=== PATIENT | female | born 1990 | race American Indian/Alaskan Native ===

== ENCOUNTER 2017-10-22 13:13 | Emergency (ER) | payer OTHER ==
[2017-10-22 14:47] VITALS: BP 107/63
[2017-10-22] MEDS ORDERED: BOOSTRIX IM ONE (20:43)
--- NOTE | 2017-10-22 21:01 | Emergency Department Report ---
ED Lower Extremity HPI - General Chief Complaint: Extremity Injury, Lower Stated Complaint: FALL Source: patient Mode of arrival: Ambulatory Limitations: No Limitations - History of Present Illness Initial Comments: 26 y/o nontoxic in appearance F presents s/p an injury to her R lower extremity at around 11 Am, when she fell at work on a rotted brandon. She states that one of her legs fell all the way down and her other leg was left on the main level. She complains of R lower extremity pain. She denies any bladder or bowel incontinence, no saddle anesthsia. No numbess or tingling. Pt has not tried anything for the pain at this time. She states that she does not know when her last tetanus shot was. She denies any fever, chills, chest pain, SOB, nausea, or vomiting. No trauma to the head or LOC. NKDA. LMP: 09/28/17. MD Complaint: hip injury, thigh injury, knee injury, ankle injury -: Sudden, days(s) (1 day, 11 AM this morning) Injury: Hip: Right, Pelvis: Right, Thigh: Right, Knee: Right, Ankle: Right Severity scale (0 -10): 10 Worsens With: weight bearing, movement Context: fall Associated Symptoms: swelling, able to partially bear weight, ambulatory. denies: numbness, tingling - Related Data Previous Rx's Medication Instructions Recorded Last Taken Type Cyclobenzaprine [Flexeril] 10 mg PO QHS PRN #15 tablet 10/22/17 Unknown Rx Diclofenac Sodium 50 mg PO BID PRN #20 tablet. 10/22/17 Unknown Rx Allergies Allergy/AdvReac Type Severity Reaction Status Date / Time No Known Allergies Allergy Unverified 10/22/17 14:46 ED Review of Systems ROS: Stated complaint: FALL Other details as noted in HPI Constitutional: denies: chills, fever Eyes: denies: eye pain, eye discharge, vision change ENT: denies: ear pain, throat pain Respiratory: denies: cough, shortness of breath, wheezing Cardiovascular: denies: chest pain, palpitations Musculoskeletal: joint swelling, arthralgia, myalgia (of the Right lower extremity) Skin: other (mild redness and swelling noted at the medial R knee and R ankle) Neurological: denies: headache, weakness, paresthesias Psychiatric: denies: anxiety, depression Hematological/Lymphatic: denies: easy bleeding, easy bruising ED Past Medical Hx - Past Medical History Previous Medical History?: No - Surgical History Past Surgical History?: No - Social History Smoking Status: Current Every Day Smoker Substance Use Type: Alcohol - Medications Home Medications: Home Medications Medication Instructions Recorded Confirmed Last Taken Type Cyclobenzaprine [Flexeril] 10 mg PO QHS PRN #15 tablet 10/22/17 Unknown Rx Diclofenac Sodium 50 mg PO BID PRN #20 tablet. 10/22/17 Unknown Rx ED Physical Exam - General Limitations: No Limitations General appearance: alert, in no apparent distress - Head Head exam: Present: atraumatic, normocephalic - Eye Eye exam: Present: normal appearance - ENT ENT exam: Present: mucous membranes moist - Neck Neck exam: Present: normal inspection - Respiratory Respiratory exam: Present: normal lung sounds bilaterally. Absent: respiratory distress - Cardiovascular Cardiovascular Exam: Present: regular rate, normal rhythm. Absent: systolic murmur, diastolic murmur, rubs, gallop - Extremities Exam Extremities exam: Present: other (there is TTP at the medial aspect of the R knee, and at the medial aspect of the R ankle, increased pain with inversion and plantar flexion of the R ankle, pulses and sensation were WNL- no gross defomirty of the R LE (L LE unremarkable)) - Expanded Lower Extremity Exam Right Hip exam: Present: full ROM, tenderness (mild ttp noted at the pelvic girdle region, no obvious deformity) Upper Leg exam: Present: normal inspection, tenderness (ttp just above the R knee joint ) Knee exam: Present: tenderness (noted on the medial aspect of the Right knee), swelling, full knee extension. Absent: deformity, effusion (pain in flexion of the R knee) Ankle exam: Present: tenderness (limited ROM of the right ankle, increased pain is inversion and plantarflexion of the right ankle, strength 4/5 in severity) Foot/Toe exam: Present: tenderness (noted at the medial aspect of the right foot , no ttp at the lateral aspect). Absent: ecchymosis, deformity, crepidus Gait: Positive: observed and limited by pain - Back Exam Back exam: Present: paraspinal tenderness (noted at the lumbar region), other ( no spinal TTP at the cervical, thoracic, or lumbar regions) - Neurological Exam Neurological exam: Present: alert, oriented X3, CN II-XII intact - Expanded Neurological Exam Expanded Patient oriented to: Present: person, place, time Speech: Present: fluid speech Best Eye Response ([place]): (4) open spontaneously Best Motor Response ([place]): (6) obeys commands Best Verbal Response ([place]): (5) oriented Bernard Total: 15 - Psychiatric Psychiatric exam: Present: normal affect, normal mood - Skin Skin exam: Present: other (minimal abrasions noted at the medial aspect of the right knee) ED Course Vital Signs 10/22/17 10/22/17 14:42 23:22 Temperature 98.4 F Pulse Rate 83 62 Respiratory 18 20 Rate Blood Pressure 107/63 Blood Pressure 107/63 [Right] O2 Sat by Pulse 99 99 Oximetry ED Lower Extremity MDM - Radiology Data Radiology results: report reviewed Pelvis, R knee, R femur, and R ankle XRAYs- unremarkable studies - Medical Decision Making due to traumatic fall this morning, a pelvis, R knee, R femur, and R ankle xray were performed and dictated by a radiologist- each of the imaging were unremarkable. Pt was given 30 mg toradol shot that helped with the pain in the ED. Pt denies a further examination of her pelvic region to ensure there is no further injury. She was discharged home with Diclofenac for the pain/ inflammation and flexeril for muscle spams/ muscle pain. I have educated her about RICE therapy, she was give an ankle stirrup and TENNILLE warp for her knee. Pt was told to follow-up with orthopedics within 1 week. Pt was discharged in stable condition, alert and oriented, no resp distress, speaking and laughing with me at discharge. Critical care attestation.: If time is entered above; I have spent that time in minutes in the direct care of this critically ill patient, excluding procedure time. ED Disposition Clinical Impression: Hip pain, right Knee contusion Qualifiers: Encounter type: initial encounter Laterality: right Qualified Code(s): S80.01XA - Contusion of right knee, initial encounter Right ankle sprain Qualifiers: Encounter type: initial encounter Involved ligament of ankle: unspecified ligament Qualified Code(s): S93.401A - Sprain of unspecified ligament of right ankle, initial encounter Low back pain Qualifiers: Chronicity: acute Back pain laterality: bilateral Sciatica presence: without sciatica Qualified Code(s): M54.5 - Low back pain Disposition: DC-01 TO HOME OR SELFCARE Is pt being admited?: No Does the pt Need Aspirin: No Condition: Stable Instructions: Diclofenac (By mouth), Cyclobenzaprine (By mouth), RICE Therapy ( ED) Additional Instructions: Please do not take muscle relaxant when operating or driving heavy machinery as this medication can make you drowsy. RICE= rest, ice, compress, and elevate the joint. Please follow-up with PCP within 1 week. Orthopedic referral provided for patient today, please follow-up within 3- 5 days. Please return to the ER immediately if your presenting symptoms acutely progress or worsen as explained to you today. Prescriptions: Cyclobenzaprine [Flexeril] 10 mg PO QHS PRN #15 tablet PRN Reason: MUSCLE SPASM Diclofenac Sodium 50 mg PO BID PRN #20 tablet.dr SPENCER Reason: Pain Referrals: [facility] [place] [Outside] - 3-5 Days [facility] [Outside] - 3-5 Days PRIMARY CAREMD [Primary Care Provider] - 3-5 Days DOMINGO MERRITT MD [Staff Physician] - 3-5 Days Forms: Work/School Release Form(ED)
[2017-10-22 21:34] LABS: HCG Qualitative,Urine Negative (Negative)
[2017-10-22] MEDS ORDERED: TORADOL IM ONE (21:36)
[2017-10-22] MEDS ORDERED: TORADOL ONE (21:39)
--- NOTE | 2017-10-22 22:11 | XRay Report ---
FINAL REPORT EXAM: XR FEMUR 2+V RT HISTORY: trauma upper leg pain TECHNIQUE: Right femur and an AP and lateral views PRIORS: None. FINDINGS: No fracture is identified. The joint spaces are within normal limits. No focal bony lesion identified. No radiopaque foreign body seen. IMPRESSION: Negative no acute abnormality.
--- NOTE | 2017-10-22 22:40 | XRay Report ---
FINAL REPORT EXAM: XR PELVIS 1-2V HISTORY: trauma pelvic pain TECHNIQUE: AP pelvis PRIORS: None. FINDINGS: No acute fractures are identified. The pubic symphysis and SI joints are intact. No evidence of hip fracture or dislocation. No bony lesions are identified. IMPRESSION: Negative no acute abnormalities seen
--- NOTE | 2017-10-22 22:40 | XRay Report ---
FINAL REPORT EXAM: XR ANKLE 3+V RT HISTORY: trauma ankle pain TECHNIQUE: Three views right ankle PRIORS: None. FINDINGS: No fracture is identified. No dislocation seen. Ankle mortise is intact no evidence of joint space widening. No erosive or degenerative changes are identified. No evidence of joint effusion. IMPRESSION: Negative ankle series
--- NOTE | 2017-10-22 22:41 | XRay Report ---
FINAL REPORT EXAM: XR KNEE 3V RT HISTORY: trauma knee pain TECHNIQUE: Right knee 3 views PRIORS: None. FINDINGS: No fracture is identified. No dislocation seen. No evidence of joint effusion. Patella demonstrates normal positioning. No acute bony abnormality identified. IMPRESSION: Negative knee series
== END 2017-10-22 23:27 | disposition home or self-care (01) ==
LOC: ED 13:13
DX: S80.01XA Contusion of right knee, initial encounter (principal); M54.5 Low back pain; M25.551 Pain in right hip; S93.401A Sprain of unspecified ligament of right ankle, initial encounter; F17.200 Nicotine dependence, unspecified, uncomplicated; W18.30XA Fall on same level, unspecified, initial encounter; Y93.89 Activity, other specified; Y92.89 Other specified places as the place of occurrence of the external cause; Y99.8 Other external cause status
CPT/HCPCS: 72170; 73552; 73562; 73610; 81025; 90471; 90715; 96372; 99284; J1885